=== PATIENT | female | born 1960 | race Caucasian/White ===

== ENCOUNTER 2019-02-02 01:09 | Emergency (ER) | payer BC ==
[2019-02-02] MEDS ORDERED: KETOROLAC 30 MG/ML VIAL IVP ONE (01:24)
[2019-02-02] MEDS ORDERED: 0.9 % SODIUM CHLORIDE 1000ML 1,000 ML IV SCH (01:30)
[2019-02-02] MEDS ORDERED: ONDANSETRON HCL IV 4 MG/2 ML VIAL IVP ONE (01:35)
--- NOTE | 2019-02-02 01:36 | Emergency Department Record ---
History of Present Illness - General Chief complaint: Flank Pain Stated complaint: SEVERE PAIN FLANK Time Seen by Provider: 02/02/19 01:12 Source: Patient Mode of Arrival: Ambulatory Limitations: No limitations - History of Present Illness Initial comments: 58 yo female presents to ED for evaluation of right sided flank pain symptoms that began 5 days ago. Patient was seen and evaluated at an ER in [place], diagnosed with a kidney stone right. Patient reports that her pain symptoms did improve, but reports her symptoms worsened this evening. Patient report fever symptoms of 101 earlier this evening as well, denies vomiting or change in stools. Patient denies previous history of kidney stones, only reports history of allergies and asthma. Patient has been taking Flomax as prescribed as well. Onset/Timin -: Days(s) Location: Suprapubic Radiation: R flank, Suprapubic Severity: Severe Severity scale (1-10): 10 Quality: Sharp Consistency: Constant Improves with: None Worsens with: Movement Patient : No Associated Symptoms: Abdominal pain, Fever/chills, Nausea/vomiting - Related Data Home Medications Medication Instructions Recorded Confirmed Last Taken Estrogens, Conjugated [Premarin] 1 tab PO DAILY 02/02/19 02/02/19 02/02/19 Montelukast Sodium [Singulair] 10 mg PO QHS 02/02/19 02/02/19 02/02/19 Tamsulosin HCl [Flomax] 0.4 mg PO DAILY 02/02/19 02/02/19 02/02/19 Previous Rx's Medication Instructions Recorded Doxycycline Hyclate 200 mg PO BID #18 cap 02/02/19 Allergies Allergy/AdvReac Type Severity Reaction Status Date / Time codeine AdvReac NAUSEA AND Verified 03/24/16 14:56 VOMITING hydromorphone HCl AdvReac SKIN Verified 03/24/16 14:56 [From Dilaudid] IRRITATION meperidine HCl [From Demerol] AdvReac NAUSEA AND Verified 03/24/16 14:56 VOMITING morphine AdvReac ITCHING Verified 03/24/16 14:56 Travel Screening - Travel/Exposure Within Last 30 Days Have you traveled within the last 30 days?: Yes Location Detail:: [place] - Travel/Exposure Within Last Year Have you traveled outside the [place] in the last year?: No - Additonal Travel Details Have you been exposed to anyone with a communicable illness?: No - Travel Symptoms Symptom Screening: None Review of Systems Constitutional: Reports: Chills, Fever. Denies: Malaise Eyes: Denies: Eye discharge, Eye pain ENT: Denies: Congestion, Ear pain, Epistaxis Respiratory: Denies: Cough, Dyspnea Cardiovascular: Denies: Chest pain, Dyspnea on exertion Endocrine: Denies: Fatigue, Heat or cold intolerance Gastrointestinal: Reports: Abdominal pain, Nausea. Denies: Vomiting Genitourinary: Denies: Incontinence, Retention Musculoskeletal: Reports: Back pain. Denies: Arthralgia, Gout, Joint swelling Skin: Denies: Bruising, Change in color Neurological: Denies: Abnormal gait, Confusion, Headache, Seizure Psychiatric: Denies: Anxiety Hematological/Lymphatic: Denies: Anemia, Blood Clots Past Medical History - SOCIAL HISTORY Smoking Status: Never smoker Alcohol Use: None Drug Use: None - RESPIRATORY Hx Respiratory Disorders: Yes Hx Asthma: Yes (completely under control) Hx Bronchitis: Yes - CARDIOVASCULAR Hx Cardio Disorders: No - NEURO Hx Neuro Disorders: Yes Hx Headaches: Yes (allergies) - GI Hx GI Disorders: No - Hx Genitourinary Disorders: Yes Hx UTI: Yes Comment:: s/p hyst - ENDOCRINE Hx Endocrine Disorders: No - MUSCULOSKELETAL Hx Musculoskeletal Disorders: Yes Hx Arthritis: Yes (osteoarthritis) Hx Osteoporosis: Yes (osteopenia) - PSYCH Hx Psych Problems: No - HEMATOLOGY/ONCOLOGY Hx Hematology/Oncology Disorders: Yes Hx Bruising: Yes Hx Blood Transfusions: Yes (1981 with c section) Family Medical History Any Significant Family History?: No Hx Cancer: Father, Mother Physical Exam - General General Appearance: Alert, Oriented x3, Cooperative, Moderate distress Limitations: No limitations - Head Head exam: Atraumatic, Normocephalic, Normal inspection Head exam detail: negative: Abrasion, Contusion, Ballard's sign, General tende rness, Hematoma, Laceration - Eye Eye exam: Normal appearance. negative: Conjunctival injection, Periorbital swelling, Periorbital tenderness, Scleral icterus - ENT Ear exam: negative: Auricular hematoma, Auricular trauma Nasal Exam: negative: Active bleeding, Discharge, Dried blood, Foreign body Mouth exam: negative: Drooling, Laceration, Muffled voice, Tongue elevation - Neck Neck exam: Normal inspection. negative: Meningismus, Tenderness - Respiratory Respiratory exam: Normal lung sounds bilaterally. negative: Rales, Respiratory distress, Rhonchi, Stridor - Cardiovascular Cardiovascular Exam: Normal rhythm, Normal heart sounds, Tachycardia - GI/Abdominal GI/Abdominal exam: Soft. negative: Rebound, Rigid, Tenderness - Rectal Rectal exam: Deferred - exam: Deferred - Extremities Extremities exam: Normal inspection. negative: Pedal edema, Tenderness - Back Back exam: Reports: CVA tenderness (R). Denies: CVA tenderness (L) - Neurological Neurological exam: Alert, Normal gait, Oriented X3 - Psychiatric Psychiatric exam: Flat affect - Skin Skin exam: Normal color. negative: Abrasion Type of lesion: negative: abrasion Course Vital Signs 02/02/19 01:23 Temperature 99.3 F Pulse Rate [ 120 H Left] Respiratory 16 Rate Blood Pressure 105/60 [Left] Pulse Ox 96 - Reevaluation(s) Reevaluation #1: 02/02/19 01:50 Initial laboratory studies were reviewed: WBC 20.0 Rocephin 2 grams IV ordered to infuse. Patient reports Toradol has not improved her symptoms, Dilaudid ordered for additional analgesia. Reevaluation #2: 02/02/19 03:00 Laboratory studies were reviewed and are otherwise grossly unremarkable for an acute process. CT Abdomen and Pelvis: Mild right-sided hydroureternephrosis without obstructing ureteral calculus Airspace opacity right middle lobe concerning for infectious process. Patient and her were updated on all results, findings are c/w pneumonia. Rocephin has completed infusing, will treat with Doxycycline as directed. Patient appears stable for discharge at this time. Medical Decision Making - Lab Data Result diagrams: 02/02/19 01:30 02/02/19 01:30 Disposition Disposition: Discharge Clinical Impression: CAP (community acquired pneumonia) Qualifiers: Laterality: right Lung location: middle lobe of lung Qualified Code(s): J18.1 - Lobar pneumonia, unspecified organism Disposition: Home, Self-Care Condition: (2) Stable Instructions: Community Acquired Pneumonia (ED) Additional Instructions: Return to ED if your symptoms worsen or if you have any concerns. Doxycycline as directed. Follow-up with your family doctor in 1-3 days as directed. Prescriptions: Doxycycline Hyclate 200 mg PO BID #18 cap Forms: Patient Portal Access Time of Disposition: 03:06 Quality - Quality Measures Quality Measures: N/A - Blood Pressure Screening Does Patient Have Any of the Following: No Blood Pressure Classification: Normal BP Reading Systolic Measurement: 108 Diastolic Measurement: 52 Screening for High Blood Pressure: < Normal BP, F/U Not Required > [G8783]
[2019-02-02 01:39] LABS: ABSOLUTE NEUTROPHIL COUNT 17.57; BASO % 0.1 % (0-6); EOS % 0.1 % (0-6); HEMATOCRIT 40.1 % (35.0-47.0); HEMOGLOBIN 13.5 gm/dl (11.6-16.0); LYMPH % 3.8 % (16-45); MEAN CELL VOLUME 91.8 fl (81-97); MEAN CORPUSCULAR HEMOGLOBIN 30.9 pg (27-33); MEAN CORPUSCULAR HGB CONC 33.7 g/dl (32-36); MEAN PLATELET VOLUME 9.5 fl (7.4-10.4); PLATELET COUNT 316 K/uL (130-400); RED BLOOD COUNT 4.37 M/uL (3.80-5.40); RED CELL DISTRIBUTION WIDTH 12.2 % (11.5-14.5)
[2019-02-02] MEDS ORDERED: CEFTRIAXONE SODIUM 2 GM in 0.9 % SODIUM CHLORIDE 100ML 100 ML IVPB ONE (01:43)
[2019-02-02] MEDS ORDERED: HYDROMORPHONE HCL 2 MG/ML VIAL IVP ONE (01:49)
[2019-02-02 01:51] LABS: BLOOD UREA NITROGEN 15 mg/dL (8-23)
[2019-02-02 01:52] LABS: CREATININE 0.8 mg/dL (0.5-0.9); EST GLOMERULAR FILTRATION RATE > 60 mL/min; TOTAL PROTEIN 6.3 g/dL (6.6-8.7)
[2019-02-02 01:54] LABS: GLUCOSE,RANDOM 129 mg/dL (74-109)
[2019-02-02 01:57] LABS: ALB/GLOB RATIO 1.5 (1.1-1.8); ALBUMIN 3.8 g/dL (4.0-5.0); ALKALINE PHOSPHATASE 62 U/L (35-104); ALT/SGPT 13 U/L (<33); AST/SGOT 19 U/L (10.0-35.0)
[2019-02-02 01:59] LABS: PLATELET ESTIMATE NORMAL (NORMAL)
[2019-02-02 02:09] LABS: URINE APPEARANCE CLEAR; URINE BILIRUBIN NEGATIVE (NEGATIVE); URINE BLOOD NEGATIVE (NEGATIVE); URINE COLOR YELLOW; URINE GLUCOSE (UA) NEGATIVE (NEGATIVE); URINE KETONE NEGATIVE (NEGATIVE); URINE LEUKOCYTE ESTERASE NEGATIVE (NEGATIVE); URINE NITRITE NEGATIVE (NEGATIVE); URINE PROTEIN NEGATIVE (NEGATIVE); URINE UROBILINOGEN 0.2 E.U./dL (0.20 - 1.00)
[2019-02-02] MEDS ORDERED: DOXYCYCLINE HYCLATE 100 MG CAPSULE PO ONE (03:08)
--- NOTE | 2019-02-03 08:24 | CT SCAN REPORT ---
EXAM: CT OF THE ABDOMEN AND PELVIS WITHOUT CONTRAST HISTORY: SUPRAPUBIC AND RIGHT FLANK PAIN BEGINNING FIVE DAYS AGO. DIAGNOSED WITH KIDNEY STONE FIVE DAYS AGO AT AN OUTSIDE INSTITUTION. TECHNIQUE: Helical CT examination of the abdomen and pelvis was performed without oral or intravenous contrast administration. Lack of oral and IV contrast utilization limits evaluation of the bowel and solid viscera respectively. Comparison: None. FINDINGS: There is an area of subsegmental consolidation within the right middle lobe suspicious for pneumonia. Minor linear scarring versus atelectasis within the inferior lingula. Minor dependent atelectasis in each lung base. No pleural or pericardial effusion. The heart is not enlarged. The liver, spleen, pancreas, and adrenal glands are normal in appearance. The gallbladder is unremarkable and no biliary ductal dilatation is seen. The kidneys are normal in size and position. They are smoothly marginated. There is a 2-3 mm nonobstructing calculus in the lower pole of the right kidney. An additional 1 mm nonobstructing calculus in the mid to lower right kidney is questioned. Tiny 1-2 mm nonobstructing calculus in the mid left kidney. No other nephrolithiasis. No renal mass. The right renal collecting system is mildly prominent down to the level of the vesicoureteral junction without obstructing calculus visualized. This may relate to recently passed stone or ascending infection. Correlation with urinalysis is recommended. The left renal collecting system is normal in caliber. No definite focal urinary bladder wall abnormality is seen. No pelvic mass, lymphadenopathy or free pelvic fluid. The uterus is surgically absent. No gross bowel dilatation nor bowel wall thickening. The appendix is visualized and normal in appearance. There is a moderate amount of stool throughout the colon. No free intraperitoneal air. A tiny fat filled umbilical hernia is present. No lytic or blastic bone lesion. There are mild degenerative changes scattered throughout the visualized spine. IMPRESSION: 1. MILD PROMINENCE OF THE RIGHT RENAL COLLECTING SYSTEM WITHOUT OBSTRUCTING CALCULUS VISUALIZED. THIS MAY RELATE TO RECENTLY PASSED STONE OR ASCENDING INFECTION. CORRELATION WITH URINALYSIS IS RECOMMENDED. 2. BILATERAL NEPHROLITHIASIS. 3. STATUS POST HYSTERECTOMY. 4. CONFLUENT AIR SPACE DISEASE WITHIN THE RIGHT MIDDLE LOBE SUSPICIOUS FOR PNEUMONIA. 5. NORMAL APPENDIX. JOB NUMBER: [id number] [facility]
== END 2019-02-02 03:23 | disposition home or self-care (01) ==
LOC: ER 01:09
DX: J18.1 Lobar pneumonia, unspecified organism (principal); R11.2 Nausea with vomiting, unspecified; Z87.442 Personal history of urinary calculi
CPT/HCPCS: 74176; 80053; 81003; 85027; 96361; 96365; 96375; 99284; J1885; J2405; J7030

== ENCOUNTER 2019-02-17 07:31 | Day surgery (SDC) | payer BC ==
[2019-02-17] MEDS ORDERED: LIDOCAINE 2% MDV (20MG/ML) 20ML VIAL IV ONE (07:32)
[2019-02-17] MEDS ORDERED: PROPOFOL 10 MG/ML VIAL IV ONE (07:32)
--- NOTE | 2019-02-18 13:00 | Operative Note ---
OPERATION: ESOPHAGOGASTRODUODENOSCOPY with biopsy. PREOPERATIVE DIAGNOSIS: Odynophagia. POSTOPERATIVE DIAGNOSIS: Nonerosive antral gastritis, otherwise normal upper endoscopy. PROCEDURE: After informed consent was obtained from the patient, she was placed in the left lateral decubitus position in the endoscopy suite, sedated and monitored by the department of anesthesia. A well-lubricated ACY005 gastroscope was placed in the posterior oropharynx under direct visualization and passed to the proximal esophagus. The endoscope was advanced through the proximal, mid, and distal esophagus. The GE junction and esophagus in its length was unremarkable. The gastric body demonstrated normal distensibility, normal rugal folds. The antrum demonstrated some linear erythematous changes but otherwise was unremarkable. The duodenal bulb and sweep were unremarkable. J-turn views of the proximal stomach were unrevealing. The endoscope was straightened. The antrum was biopsied. The endoscope removed from the patient with no new findings noted. RECOMMENDATIONS: At this point, it is suspicious the patient may have had a pill injury and/or may have had an esophageal tear which has subsequently resolved. The esophagus now appears normal. I would recommend she separate her pills and use increased amounts of liquid and water for swallowing purposes. If she has any recurrent issues, I would be happy to see her in followup. As always, thank you for allowing me to participate in the healthcare of your patients. [facility]
== END 2019-02-17 09:58 | disposition home or self-care (01) ==
LOC: HOP 07:31
PROVIDERS: ATTEND Internal Medicine Gastroenterology
DX: R13.10 Dysphagia, unspecified (principal); R12 Heartburn; K29.60 Other gastritis without bleeding; J45.909 Unspecified asthma, uncomplicated